=== PATIENT | female | born 1975 | race African-American/Black ===

== ENCOUNTER 2017-06-09 06:27 | Emergency (ER) | payer MEDICAID ==
[~2017-06-09] VITALS: Ht 160 cm; Wt 59.0 kg
[2017-06-09 06:43] VITALS: BP 110/61
== END 2017-06-09 08:07 | disposition left against medical advice (07) ==
LOC: ER 06:31
DX: Z48.02 Encounter for removal of sutures (principal); Z53.21 Procedure and treatment not carried out due to patient leaving prior to being seen by health care provider

== ENCOUNTER 2018-02-08 09:04 | Emergency (ER) | payer MEDICAID ==
[~2018-02-08] VITALS: Ht 165.1 cm; Wt 61.0 kg
[2018-02-08 10:17] LABS: BASOPHILS % 0.7 % (0.0-2.0); EOSINOPHILS % 0.7 % (0.0-5.0); LYMPHOCYTES % 39.8 % (20.0-50.0); MEAN CORPUSCULAR HEMOGLOBIN 20.2 pg (28.0-32.0); MEAN CORPUSCULAR VOLUME 67.6 fL (81.0-99.0); MEAN PLATELET VOLUME 8.8 fl (7.4-10.4); MONOCYTES % 6.4 % (2.0-8.0); NEUTROPHILS % 52.4 % (40.0-76.0); PLATELET 136 x1000/uL (130-400); RED BLOOD CELL COUNT 4.44 mill/uL (4.2-5.4); RED CELL DISTRIBUTION WIDTH 20.4 % (11.6-14.6)
[2018-02-08 10:25] LABS: CHLORIDE 110 mEq/L (98-107)
[2018-02-08 10:30] LABS: PLATELET ESTIMATE NORMAL
[2018-02-08 10:41] LABS: ETHANOL BLOOD < 10 mg/dL
[2018-02-08 11:38] LABS: HCG SCREEN NEGATIVE
[2018-02-08] MEDS ORDERED: POTASSIUM CHLORIDE 20MEQ TABLET SR PO ONE (11:45)
[2018-02-08 16:55] LABS: CLARITY URINE CLOUDY (CLEAR); COLOR URINE YELLOW (YELLOW); KETONES URINE NEGATIVE (NEGATIVE); LEUKOCYTE ESTERASE URINE 1+ (NEGATIVE); NITRITE URINE NEGATIVE (NEGATIVE); OCCULT BLOOD URINE NEGATIVE (NEGATIVE); PH URINE 6.5 (4.5-8.0); PROTEIN URINE 1+ (NEGATIVE); SPECIFIC GRAVITY URINE 1.025 (1.005-1.030)
[2018-02-08 17:05] LABS: *AMPHETAMINES SCREEN URINE NEGATIVE (NEGATIVE); *BARBITURATES SCREEN URINE NEGATIVE (NEGATIVE); *BENZODIAZEPINES SCREEN URINE NEGATIVE (NEGATIVE); METHADONE URINE SCREEN NEGATIVE (NEGATIVE)
[2018-02-08 17:06] LABS: *COCAINE SCREEN URINE NEGATIVE (NEGATIVE); CANNABINOID URINE SCREEN NEGATIVE (NEGATIVE)
[2018-02-08 17:08] LABS: OPIATES URINE SCREEN NEGATIVE (NEGATIVE)
[2018-02-08 17:13] LABS: PHENCYCLIDINE URINE SCREEN PRESUMTIVE POSITIVE (NEGATIVE)
[2018-02-08] MEDS ORDERED: CEFTRIAXONE SODIUM 1 G/VIAL IM ONE (21:00)
[2018-02-09 10:21] VITALS: BP 110/74
== END 2018-02-09 10:26 | disposition home or self-care (01) ==
LOC: ER 09:09
DX: F32.9 Major depressive disorder, single episode, unspecified (principal); F20.9 Schizophrenia, unspecified; N39.0 Urinary tract infection, site not specified; M54.5 Low back pain; D64.9 Anemia, unspecified; E87.6 Hypokalemia; F12.10 Cannabis abuse, uncomplicated; F16.10 Hallucinogen abuse, uncomplicated; R45.851 Suicidal ideations
CPT/HCPCS: 36415; 80048; 80305; 80307; 80329; 81003; 84703; 85025; 96372; 99284; G0482; J0696; Z7610

== ENCOUNTER 2018-02-14 22:34 | Emergency (ER) | payer MEDICAID ==
[~2018-02-14] VITALS: Ht 167.6 cm; Wt 59.0 kg
[2018-02-15 00:38] VITALS: BP 113/74
== END 2018-02-15 00:51 | disposition home or self-care (01) ==
LOC: ER 22:34
DX: R42 Dizziness and giddiness (principal); F20.9 Schizophrenia, unspecified; Z88.8 Allergy status to other drugs, medicaments and biological substances
CPT/HCPCS: 93005; 99283

== ENCOUNTER 2018-03-08 18:30 | Emergency (ER) | payer MEDICAID ==
[~2018-03-08] VITALS: Ht 175.3 cm; Wt 50.0 kg
[2018-03-08 20:48] LABS: BASOPHILS % 1.1 % (0.0-2.0); EOSINOPHILS % 1.2 % (0.0-5.0); HEMATOCRIT. 28.5 % (36.0-48.0); HEMOGLOBIN. 8.5 g/dL (12.0-16.0); LYMPHOCYTES % 56.2 % (20.0-50.0); MEAN CORPUSCULAR HEMOGLOBIN 21.1 pg (28.0-32.0); MEAN CORPUSCULAR VOLUME 70.4 fL (81.0-99.0); MEAN PLATELET VOLUME 8.9 fl (7.4-10.4); MONOCYTES % 5.1 % (2.0-8.0); NEUTROPHILS % 36.4 % (40.0-76.0); PLATELET 214 x1000/uL (130-400); RED BLOOD CELL COUNT 4.04 mill/uL (4.2-5.4); RED CELL DISTRIBUTION WIDTH 20.6 % (11.6-14.6)
[2018-03-08 20:49] LABS: CHLORIDE 109 mEq/L (98-107)
[2018-03-08 20:53] LABS: ETHANOL BLOOD < 10 mg/dL
[2018-03-08 20:56] LABS: HCG SCREEN NEGATIVE
[2018-03-08 21:59] LABS: CLARITY URINE CLOUDY (CLEAR); COLOR URINE YELLOW (YELLOW); KETONES URINE NEGATIVE (NEGATIVE); LEUKOCYTE ESTERASE URINE NEGATIVE (NEGATIVE); NITRITE URINE NEGATIVE (NEGATIVE); OCCULT BLOOD URINE NEGATIVE (NEGATIVE); PH URINE 5.5 (4.5-8.0); PROTEIN URINE NEGATIVE (NEGATIVE); SPECIFIC GRAVITY URINE 1.022 (1.005-1.030); UROBILINOGEN URINE 0.2 E.U./dL (0.2-1.0)
[2018-03-08 22:23] LABS: *AMPHETAMINES SCREEN URINE NEGATIVE (NEGATIVE); *BARBITURATES SCREEN URINE NEGATIVE (NEGATIVE); *BENZODIAZEPINES SCREEN URINE NEGATIVE (NEGATIVE); *COCAINE SCREEN URINE NEGATIVE (NEGATIVE); METHADONE URINE SCREEN NEGATIVE (NEGATIVE); OPIATES URINE SCREEN NEGATIVE (NEGATIVE)
[2018-03-08 22:24] LABS: CANNABINOID URINE SCREEN NEGATIVE (NEGATIVE)
[2018-03-08 22:25] LABS: PHENCYCLIDINE URINE SCREEN PRESUMTIVE POSITIVE (NEGATIVE)
[2018-03-08] MEDS ORDERED: POTASSIUM CHLORIDE 20MEQ TABLET SR PO NR (23:15)
[2018-03-08 23:25] VITALS: BP 119/92
== END 2018-03-08 23:40 | disposition home or self-care (01) ==
LOC: ER 18:30
DX: F11.10 Opioid abuse, uncomplicated (principal); F16.10 Hallucinogen abuse, uncomplicated; E87.6 Hypokalemia; D64.9 Anemia, unspecified
CPT/HCPCS: 36415; 80053; 80305; 81003; 81025; 84703; 85025; 99284; G0482